=== PATIENT | female | born 1985 | race Caucasian/White ===

== ENCOUNTER 2017-11-02 23:03 | Emergency (ER) | payer MEDICAID ==
[2017-11-03 04:40] LABS: ADD UMIC YES; UR ASCORBIC ACID NEGATIVE (NEGATIVE); UR BILIRUBIN (Dip) NEGATIVE (NEGATIVE); UR BLOOD (Dip) NEGATIVE (NEGATIVE); UR CLARITY CLEAR (CLEAR); UR COLOR YELLOW (YELLOW); UR GLUCOSE (Dip) NEGATIVE (NEGATIVE); UR KETONES (Dip) NEGATIVE (NEGATIVE); UR LEUKOCYTE ESTERASE (Dip) NEGATIVE Leu/ul (NEGATIVE); UR MUCUS FEW /HPF (NONE SEEN); UR NITRITE (Dip) NEGATIVE (NEGATIVE); UR RBC 1 /HPF (0-5); UR SPECIFIC GRAVITY (Dip) 1.028 (1.003-1.030); UR SQUAMOUS EPITHELIAL CELL FEW /HPF (FEW); UR TOTAL PROTEIN (Dip) 1+ mg/dl (NEGATIVE); UR UROBILINOGEN (Dip) 1+ mg/dL (NEGATIVE); UR WBC 1 /HPF (0-5)
[2017-11-03] MEDS: HYDROCODONE/APAP (5/325) TAB PO (04:40)
== END 2017-11-03 05:45 | disposition home or self-care (01) ==
LOC: FTE 23:03
DX: R10.2 Pelvic and perineal pain (principal)
CPT/HCPCS: 76830; 76856; 81001; 84703; 99284-25

== ENCOUNTER 2018-11-20 22:33 | Emergency (ER) | payer SELFPAY, MEDICAID ==
[2018-11-21 00:53] LABS: UR MUCUS MANY /HPF (NONE SEEN); UR RBC > 182 /HPF (0-5); UR WBC > 182 /HPF (0-5)
[2018-11-21 01:02] LABS: ADD UMIC YES; UR CLARITY BLOODY (CLEAR); UR COLOR RED (YELLOW); UR SPECIFIC GRAVITY (Dip) 1.035 (1.003-1.030); UR TOTAL PROTEIN (Dip) 2+ mg/dl (NEGATIVE)
[2018-11-21 01:03] LABS: UR GLUCOSE (Dip) 1% mg/dL (NEGATIVE); UR KETONES (Dip) NEGATIVE (NEGATIVE)
[2018-11-21 01:04] LABS: UR BILIRUBIN (Dip) NEGATIVE (NEGATIVE); UR BLOOD (Dip) 3+ mg/dL (NEGATIVE); UR LEUKOCYTE ESTERASE (Dip) 2+ Leu/ul (NEGATIVE); UR NITRITE (Dip) POSITIVE (NEGATIVE); UR UROBILINOGEN (Dip) NEGATIVE (NEGATIVE)
[2018-11-21 01:05] LABS: UR ASCORBIC ACID 20 mg/dL (NEGATIVE)
== END 2018-11-21 01:33 | disposition home or self-care (01) ==
LOC: FTE 11-21 01:33
DX: N39.0 Urinary tract infection, site not specified (principal)
CPT/HCPCS: 81001; 81025; 87086; 99283